=== PATIENT | male | born 1950 | race African-American/Black ===

== ENCOUNTER 2020-08-14 18:26 | Inpatient (IN) | payer BC ==
[~2020-08-14] VITALS: Ht 180.3 cm; Wt 98.1 kg
[~2020-08-14 18:26] MED LIST: CARV6.2548 PO; DULO60CA64 PO; ISOS1TAB PO; LOSA50TA41 PO; PREG75CA PO; TAMS-11 PO
[2020-08-14 20:17] LABS: CHLORIDE 98 mEq/L (98-107)
[2020-08-14 20:18] LABS: HEMATOCRIT. 33.3 % (42.0-52.0); HEMOGLOBIN. 10.8 g/dL (14.0-18.0); INR 1.1; MEAN CORPUSCULAR HEMOGLOBIN 25.6 pg (28.0-32.0); MEAN CORPUSCULAR VOLUME 78.7 fL (80.0-94.0); MEAN PLATELET VOLUME 7.4 fl (7.4-10.4); PLATELET 304 x1000/uL (130-400); PROTHROMBIN TIME 11.4 sec (9.6-11.0); RED BLOOD CELL COUNT 4.23 mill/uL (4.7-6.1); RED CELL DISTRIBUTION WIDTH 15.2 % (11.6-14.6)
[2020-08-14 20:57] LABS: PLATELET ESTIMATE NORMAL
[2020-08-15 02:00] VITALS: BP 131/76
[2020-08-15 04:36] VITALS: BP 156/80
[2020-08-15] MEDS: PREGABALIN 75MG CAPSULE PO SCH ×3 (05:31→22:16)
[2020-08-15] MEDS: ISOSORB DINIT/HYDRALAZINE HCL 20/37.5MG TABLET PO SCH ×3 (05:31→22:16)
[2020-08-15 08:00] VITALS: BP 143/74
[2020-08-15] MEDS: LOSARTAN POTASSIUM 50 MG TABLET PO SCH (09:10)
[2020-08-15] MEDS: TAMSULOSIN HCL 0.4MG SR CAPSULE PO SCH (09:10)
[2020-08-15] MEDS: CARVEDILOL 6.25 MG TABLET PO SCH ×2 (09:10→21:05)
[2020-08-15] MEDS: DULOXETINE HCL 60MG DR CAPSULE PO SCH (09:10)
[2020-08-15] MEDS: ENOXAPARIN 40MG/0.4ML SYR SUBCUT SCH (09:11)
[2020-08-15] MEDS: AMIODARONE HCL 200 MG TABLET PO SCH ×2 (09:15→21:05)
[2020-08-15 12:12] VITALS: BP 124/68
[2020-08-15 16:00] VITALS: BP 118/68
[2020-08-15 20:00] VITALS: BP 145/79
[2020-08-16] VITALS: BP 100/47
[2020-08-16 04:00] VITALS: BP 137/78
[2020-08-16] MEDS: PREGABALIN 75MG CAPSULE PO SCH ×2 (05:49→14:36)
[2020-08-16] MEDS: ISOSORB DINIT/HYDRALAZINE HCL 20/37.5MG TABLET PO SCH ×2 (05:50→13:54)
[2020-08-16 06:57] LABS: CHLORIDE 101 mEq/L (98-107)
[2020-08-16 07:31] LABS: HEMATOCRIT. 31.8 % (42.0-52.0); HEMOGLOBIN. 10.2 g/dL (14.0-18.0); MEAN CORPUSCULAR HEMOGLOBIN 25.1 pg (28.0-32.0); MEAN CORPUSCULAR VOLUME 78.6 fL (80.0-94.0); MEAN PLATELET VOLUME 7.7 fl (7.4-10.4); PLATELET 310 x1000/uL (130-400); RED BLOOD CELL COUNT 4.05 mill/uL (4.7-6.1); RED CELL DISTRIBUTION WIDTH 15.5 % (11.6-14.6)
[2020-08-16 08:00] VITALS: BP 111/62
[2020-08-16 08:53] LABS: *AMPHETAMINES SCREEN URINE NEGATIVE (NEGATIVE); *BARBITURATES SCREEN URINE NEGATIVE (NEGATIVE); *BENZODIAZEPINES SCREEN URINE NEGATIVE (NEGATIVE); *COCAINE SCREEN URINE NEGATIVE (NEGATIVE); CANNABINOID URINE SCREEN NEGATIVE (NEGATIVE); PHENCYCLIDINE URINE SCREEN NEGATIVE (NEGATIVE)
[2020-08-16 08:54] LABS: METHADONE URINE SCREEN NEGATIVE (NEGATIVE); OPIATES URINE SCREEN NEGATIVE (NEGATIVE)
[2020-08-16] MEDS: TAMSULOSIN HCL 0.4MG SR CAPSULE PO SCH (09:13)
[2020-08-16] MEDS: LOSARTAN POTASSIUM 50 MG TABLET PO SCH (09:13)
[2020-08-16] MEDS: CARVEDILOL 6.25 MG TABLET PO SCH (09:13)
[2020-08-16] MEDS: DULOXETINE HCL 60MG DR CAPSULE PO SCH (09:13)
[2020-08-16] MEDS: AMIODARONE HCL 200 MG TABLET PO SCH (09:13)
[2020-08-16] MEDS: ENOXAPARIN 40MG/0.4ML SYR SUBCUT SCH (09:14)
[2020-08-16 12:00] VITALS: BP 107/58
[2020-08-16 13:13] LABS: CLARITY URINE CLEAR (CLEAR); COLOR URINE YELLOW (YELLOW); KETONES URINE NEGATIVE (NEGATIVE); LEUKOCYTE ESTERASE URINE NEGATIVE (NEGATIVE); NITRITE URINE NEGATIVE (NEGATIVE); OCCULT BLOOD URINE NEGATIVE (NEGATIVE); PH URINE 7.5 (4.5-8.0); PROTEIN URINE NEGATIVE (NEGATIVE); SPECIFIC GRAVITY URINE 1.019 (1.005-1.030)
[2020-08-16 13:57] VITALS: BP 107/58
[2020-08-16 17:02] LABS: PLATELET ESTIMATE NORMAL
[2020-08-17] MEDS ORDERED: ENOXAPARIN 30MG/0.3ML SYR SUBCUT SCH (09:00)
== END 2020-08-16 13:45 | disposition home or self-care (01) | DRG 292 ==
LOC: ER 18:26 → 5WST 22:47 → ENRESERV 23:21
PROVIDERS: ADMIT Internal Medicine; ATTEND Internal Medicine
PROC: 4B02XTZ Measurement of Cardiac Defibrillator, External Approach (ICD-10-PCS; principal; 2020-08-15)
DX: I11.0 Hypertensive heart disease with heart failure (principal); E87.1 Hypo-osmolality and hyponatremia; R25.1 Tremor, unspecified; I50.23 Acute on chronic systolic (congestive) heart failure; I42.8 Other cardiomyopathies; R00.2 Palpitations; I25.10 Atherosclerotic heart disease of native coronary artery without angina pectoris; D64.9 Anemia, unspecified; E78.5 Hyperlipidemia, unspecified; I27.20 Pulmonary hypertension, unspecified; K21.9 Gastro-esophageal reflux disease without esophagitis; F14.10 Cocaine abuse, uncomplicated; Z79.899 Other long term (current) drug therapy; Z88.8 Allergy status to other drugs, medicaments and biological substances; Z95.810 Presence of automatic (implantable) cardiac defibrillator
CPT/HCPCS: 36415; 71045; 80048; 80053; 80305; 81003; 83880; 84484; 85025; 93005; 99285; J1650

== ENCOUNTER 2021-04-16 14:27 | Emergency (ER) | payer BC ==
[~2021-04-16] VITALS: Ht 182.9 cm; Wt 84.0 kg
[2021-04-16] MEDS ORDERED: LIDOCAINE 5% PATCH TOP SCH (19:30)
[2021-04-16] MEDS ORDERED: IBUPROFEN 400MG TABLET PO ONE (19:30)
[2021-04-16] MEDS ORDERED: ACETAMINOPHEN 325MG TABLET PO ONE (19:30)
[2021-04-16] MEDS ORDERED: KETOROLAC 60MG/2ML VIAL IM ONE (19:30)
[2021-04-16] MEDS ORDERED: METHOCARBAMOL 500MG TABLET PO ONE (19:30)
[2021-04-16] MEDS ORDERED: TOPUD PO (23:44)
[2021-04-16] MEDS ORDERED: IBUP-2028 MT (23:44)
[2021-04-16] MEDS ORDERED: LIDO1ADH23 TP (23:46)
[2021-04-16] MEDS ORDERED: METH-653 MT (23:46)
[2021-04-17 00:08] VITALS: BP 133/79
== END 2021-04-17 00:08 | disposition home or self-care (01) ==
LOC: ER 14:27
DX: M54.2 Cervicalgia (principal); M25.551 Pain in right hip; I11.0 Hypertensive heart disease with heart failure; I50.9 Heart failure, unspecified; W01.0XXA Fall on same level from slipping, tripping and stumbling without subsequent striking against object, initial encounter; Y93.9 Activity, unspecified; Y99.9 Unspecified external cause status; Z88.6 Allergy status to analgesic agent; Z95.0 Presence of cardiac pacemaker; Z87.891 Personal history of nicotine dependence; Z98.890 Other specified postprocedural states
CPT/HCPCS: 70490; 73502; 96372; 99284; J1885